=== PATIENT | female | born 1945 | race Caucasian/White ===

== ENCOUNTER → 2016-07-05 | Day surgery (SDC) | payer MEDICARE, OTHER ==
[~2016-07-05] MED LIST: ACETAMINOPHEN 1000 MG/100 ML VIAL IV ONE; APREPITANT 40 MG CAP ONE; BUPIVACAINE/EPINEPHRINE 0.25% 50 ML VIAL ONE; KETOROLAC TROMETHAMINE 30 MG/ML (IVP) VIAL IV PUSH ONE; LACTATED RINGER'S 1,000 ML BAG IV ONE; LACTATED RINGER'S 1000 ML INJ 1,000 ML ONE; MIDAZOLAM HCL 2 MG/2 ML VIAL ONE; MORPHINE SULFATE 4 MG/ML INJ ONE; ONDANSETRON HCL 4 MG/2 ML VIAL IV PUSH ONE; PROPOFOL 200 MG/20 ML AMP IV ONE; ceFAZolin 2 GM PREMIX 50 ML ONE; metroNIDAZOLE 500 MG INJ 100 ML IV ONE
--- NOTE | 2016-07-05 11:38 | TN ---
cc: CORY ESTRADA M.D. DATE OF SURGERY 07/05/2016 PREOPERATIVE DIAGNOSIS Acute and chronic calculous cholecystitis POSTOPERATIVE DIAGNOSIS Acute and chronic calculous cholecystitis PROCEDURE Laparoscopic cholecystectomy SURGEON Dr. Cory Estrada RELIGIOUS ACTIVITIES DIRECTOR Sammi Soto, DIVORCE ATTORNEY SECOND RELIGIOUS ACTIVITIES DIRECTOR Cynthia Benjamin, MS-3 ANESTHESIA General INDICATIONS This is a very pleasant 70-year-old woman who experienced an acute episode of severe upper abdominal pain, nausea and vomiting which started on June 22 and lasted through the following day June 23. She has an ultrasound which showed stones and one about 1.3 cm non-mobile in the gallbladder neck. INTRAOPERATIVE FINDINGS Consistent with acute and chronic calculous cholecystitis. Very thickened gallbladder wall with omentum covering the gallbladder. Stone stuck down in the gallbladder neck. Gallbladder removed and sent to pathology. ESTIMATED BLOOD LOSS Less than 25 mL. NOTE This procedure was assisted by my nurse practitioner. The skill set of and an DIVORCE ATTORNEY was medically necessary to provide appropriate visualization and create efficiency in the progress of the operative procedure. The industrial machine system technician was of the back table providing appropriate instrumentation while the nurse practitioner was directly assisting me through the entirety of the procedure. DESCRIPTION OF PROCEDURE IN DETAIL The patient was identified as Bonny Woody, taken to the operating room, placed in the supine position. Sequential compression devices were placed on bilateral lower extremities. Following induction of adequate general endotracheal anesthesia, the patient's abdomen was prepped and draped in the usual sterile fashion with Betadine. A time-out procedure was performed. Following completion of the time-out procedure to everyone's satisfaction within the room, 0.25% Marcaine with epinephrine was placed at each incision site. An infraumbilical vertical incision was carried out with a scalpel and dissection continued posteriorly to the level of the midline fascia. The base of the umbilicus was retracted anteriorly. The fascia was incised in a vertical fashion. Entry into the peritoneal cavity was facilitated with the surgeon's finger. The applied medical balloon Carrasco trocar was placed in the peritoneal cavity, its balloon inflated to a CO2 insufflation to a level of 15 mmHg ensued. The patient was placed in a reverse Trendelenburg position turned to left and two upper abdominal 5 mm trocars were placed in the peritoneal cavity under direct laparoscopic view after incision in the skin with a scalpel. The gallbladder was immediately identified covering omentum, retracted superiorly and anteriorly and the omental adhesions were taken down with blunt dissection and the harmonic scalpel. The gallbladder was then removed from the gallbladder fossa in a dome down technique using the harmonic scalpel. The cystic artery was divided with the harmonic scalpel. The cystic duct was isolated from surrounding tissues, ligated proximally and distally with 0-PDS Endoloops, divided between the Endoloops and the gallbladder was placed into a endo-retriever bag and removed through the infraumbilical fascial port incision site which had to be extended at the level of fascia as well as the skin to allow for removal of this distended inflamed, thickened gallbladder with stones. The gallbladder was passed off field for pathologic evaluation. The right upper quadrant was irrigated copiously with saline. There was no evidence of bleeding. The cystic arterial stump was hemostatic. The cystic duct ligature remained intact. Remaining intra-abdominal contents appeared normal. Approximately 25 cc of local anesthetic was placed in the subhepatic position. Trocars were removed under direct visualization. There was no bleeding from trocar sites. The abdomen was desufflated through the infraumbilical port which was then removed. The infraumbilical fascial incision was closed with interrupted to 0 Vicryl sutures. Port sites were irrigated with saline. Skin incisions were approximated with 4-0 Monocryl subcuticular sutures. Dressings were applied with Mastisol and half-inch brown Steri-Strips. The patient tolerated procedure without apparent complication. Sponge, needle and instrument counts correct at the case. MD VU Angel/SORIN /11:14 AM 11:28 AM
== END | disposition home or self-care (01) ==
LOC: ESDC 07:23
PROVIDERS: ATTEND Surgery Trauma Surgery
DX: K80.12 Calculus of gallbladder with acute and chronic cholecystitis without obstruction (principal); C23 Malignant neoplasm of gallbladder
CPT/HCPCS: 00790; 47562; 88304; J0131; J0690; J1885; J2250; J2270; J2405; J3010; J7120; J8501